=== PATIENT | male | born 1955 | race Caucasian/White ===

== ENCOUNTER 2020-07-28 10:00 | Emergency (ER) | payer MEDICARE ==
[2020-07-28] MEDS ORDERED: MEDROL 4MG DOSEP4 MG PO (10:32)
[2020-07-28] MEDS ORDERED: ZYRTEC10 M2 PO (10:32)
== END 2020-07-28 10:45 | disposition home or self-care (01) ==
LOC: FER 10:00
DX: T78.40XA Allergy, unspecified, initial encounter (principal)
CPT/HCPCS: 99282